=== PATIENT | female | born 1970 | race Caucasian/White ===

== ENCOUNTER 2016-11-17 19:24 | Emergency (ER) | payer BC ==
[2016-11-17] MEDS ORDERED: Amoxicillin/Clavulanate TAB* 875 MG PO ONE (21:04)
--- NOTE | 2016-11-17 21:11 | UC ---
Xavier Nagel Benjamin, scribed for Em Eastman MD on 11/17/16 at 2103 . Ear Complaint HPI - HPI Summary HPI Summary: 46yo female c/o bilateral ear aches for couple of weeks. Pt had left over rxed abx from last year, which pt took them for 4 days for her ear aches. Abx made her symptoms better initially but not reports way worse symptoms. PT also reports having sore throat and nasal drainage for a few days. Pts boyfriend also has similar symptoms with less severity. Denies fever or chills. No drooling. Painful swallowing. No analgesia taken. Pt hasnt tried anything for pain. PMHx of HTN, but not taking any BP meds. No recent travel. - History of Current Complaint Chief Complaint: UCEar Stated Complaint: EAR ACHE Time Seen by Provider: 11/17/16 20:33 Hx Obtained From: Patient Hx Last Menstrual Period: 11/11/16 ?: No Onset/Duration: Gradual Onset, Lasting Weeks - "couple of weeks", Still Present Severity Initially: Moderate Severity Currently: Moderate Pain Intensity: 7 Pain Scale Used: 0-10 Numeric Aggravating Factors: Nothing Alleviating Factors: Nothing Associated Signs/Symptoms: Positive: URI Symptoms - Allergies/Home Medications Allergies/Adverse Reactions: Allergies Allergy/AdvReac Type Severity Reaction Status Date / Time No Known Allergies Allergy Verified 09/16/15 15:25 PMH/Surg Hx/FS Hx/Imm Hx Previously Healthy: Yes Cardiovascular History: Hypertension - Surgical History Surgical History: Yes Surgery Procedure, Year, and Place: right hand - Family History Known Family History: Negative: Diabetes, Blood Disorder - Social History Occupation: Employed Full-time Lives: With Family Alcohol Use: Occasionally Substance Use Type: None Smoking Status (MU): Never Smoked Tobacco Have You Smoked in the Last Year: No - Immunization History Most Recent Tetanus Shot: 2014 Hx Tetanus, Diphtheria Vaccination: Yes - <2 yrs ago Vaccination Up to Date: Yes Review of Systems Constitutional: Negative Skin: Negative Eyes: Negative ENT: Sore Throat, Ear Ache, Nasal Discharge, Sinus Congestion Respiratory: Negative Cardiovascular: Negative Gastrointestinal: Negative Genitourinary: Negative Motor: Negative Neurovascular: Negative Musculoskeletal: Negative Neurological: Negative Psychological: Negative All Other Systems Reviewed And Are Negative: Yes Physical Exam Triage Information Reviewed: Yes Appearance: Well-Appearing, No Pain Distress, Well-Nourished Vital Signs: Initial Vital Signs Temp 98.4 F 11/17/16 19:27 Pulse 80 11/17/16 19:27 Resp 16 11/17/16 19:27 BP 176/100 11/17/16 19:27 Pulse Ox 100 11/17/16 19:27 Vital Signs Reviewed: Yes Eye Exam: Normal Eyes: Positive: Conjunctiva Clear ENT: Positive: Hearing grossly normal, Nasal congestion, TM red, Other: - right TM - + fluid, no erythema left TM: ++ fluid, bulge, erythema turbinates inflammed and boggy + PND uvula midline no exudate Ear Complaint Course/Dx - Course Course Of Treatment: Blood pressure noted and patient informed to follow up with PCP. Pt advised to resume BP meds, avoid decongestant. motrin/apap. flonase. augmentin. secretion hygeine - Differential Dx/Diagnosis Provider Diagnoses: left OM, sinusitis Discharge - Discharge Plan Condition: Stable Disposition: HOME Prescriptions: Amoxicillin/Clavulanate TAB* [Augmentin TAB 875*] 875 mg PO BID #20 tab Fluconazole [Diflucan 150 MG (NF)] 150 mg PO ONCE PRN #1 tab PRN Reason: melody Fluticasone NASAL SPRAY 50MCG* [Flonase NASAL SPRAY 50MCG*] 1 spray BOTH NARES DAILY #1 btl Patient Education Materials: Sinusitis (ED), Otitis Media (ED) Referrals: Kyler Gresham MD [Primary Care Provider] - Additional Instructions: - Stay well hydrated. Drink plenty of non-alcoholic, non-caffinated beverages - Okay to alternate ibuprofen (advil, motrin) and tylenol every 3 hours for pain. Take with food. Do NOT take for more than 4-5 days - USe nasal spray as instructed - It is recommended you use an allergy medication such as Claritin, zyrtec, patience - These infections are spread by oral secretions. Do not share eating or drinking utensils. Frequent hand washing is important. Clean items that may get your secretions on them such as cell phones, ipads, computer mouse, television remotes. After you have been on antibiotics for 2 days, change you pillowcase and your toothbrush - You have been given a prescription for diflucan - okay to fill and use as needed for a yeast infection related to antibiotic use - call your doctor or return with questions or concerns The documentation as recorded by the Xavier guadarrama Benjamin accurately reflects the service I personally performed and the decisions made by me, Em Eastman MD.
[2016-11-17 21:40] VITALS: BP 164/86
== END 2016-11-17 21:35 | disposition home or self-care (01) ==
LOC: UCEAST 19:24
DX: H66.92 Otitis media, unspecified, left ear (principal); J32.9 Chronic sinusitis, unspecified; I10 Essential (primary) hypertension
CPT/HCPCS: 99212; A9270-GY; G0463